=== PATIENT | female | born 1960 | race Caucasian/White ===

== ENCOUNTER → 2016-10-14 | Outpatient (CLI) | payer OTHER ==
[2016-10-14 09:07] LABS: BASO % 0.4 % (0.0-1.0); EOS # 0.2 K/mm3 (0.0-0.50); EOS % 2.5 % (0.0-3.0); LARGE UNSTAINED CELL # 0.1 K/mm3 (0.0-0.4); LARGE UNSTAINED CELL % 2.3 % (0.0-4.0); LYMPH # 1.9 K/mm3 (1.5-4.5); LYMPH % 30.8 % (24.0-44.0); MEAN CORPUSCULAR HEMOGLOBIN 29.5 pg (27.0-33.0); MEAN CORPUSCULAR HGB CONC 33.5 g/dl (32.0-36.5); MEAN CORPUSCULAR VOLUME 87.9 fl (80.0-96.0); MONO # 0.4 K/mm3 (0.0-0.8); NEUTROPHILS # 3.6 K/mm3 (1.8-7.7); PLATELET COUNT, AUTOMATED 242 k/mm3 (150-450); RED CELL DISTRIBUTION WIDTH 12.9 % (11.5-14.5); WHITE BLOOD COUNT 6.2 K/mm3 (4.0-10.0)
[2016-10-14 09:22] LABS: ALBUMIN 3.9 GM/DL (3.2-5.2); ALBUMIN/GLOBULIN RATIO 1.18 (1.00-1.93); ALKALINE PHOSPHATASE 49 U/L (45-117); ALT/SGPT 25 U/L (12-78); ANION GAP 4 MEQ/L (8-16); AST/SGOT 12 U/L (15-37); BILIRUBIN,TOTAL 0.4 MG/DL (0.2-1.0); BLOOD UREA NITROGEN 17 MG/DL (7-18); CALCIUM LEVEL 9.3 MG/DL (8.5-10.1); CARBON DIOXIDE LEVEL 32 MEQ/L (21-32); CHLORIDE LEVEL 103 MEQ/L (98-107); CHOLESTEROL LEVEL 179 MG/DL (<200); CREATININE FOR GFR 0.69 MG/DL (0.55-1.02); GLOMERULAR FILTRATION RATE > 60.0 (>51); GLUCOSE, FASTING 86 MG/DL (70-105); POTASSIUM SERUM 4.2 MEQ/L (3.5-5.1); SODIUM LEVEL 139 MEQ/L (136-145); TOTAL PROTEIN 7.2 GM/DL (6.4-8.2); TRIGLYCERIDES LEVEL 95 MG/DL (<150)
== END ==
LOC: M LAB 08:21
PROVIDERS: ATTEND Nurse Practitioner Family
DX: K21.9 Gastro-esophageal reflux disease without esophagitis (principal); Z13.220 Encounter for screening for lipoid disorders

== ENCOUNTER → 2016-10-21 | Outpatient (CLI) | payer OTHER ==
--- NOTE | 2016-10-22 08:14 | REPMRS ---
Patient History The patient states she had a clinical breast exam in June 2016.Family history of prostate cancer in father at age 55. Digital Mammo Screening Bilat: October 21, 2016 - Exam #: [id number] Bilateral CC and MLO view(s) were taken. Technologist: Kellen Lester, Technologist Prior study comparison: October 25, 2011, bilateral digital mammo screening bilat performed at [facility]. February 05, 2008, bilateral bilat screen digital mammo performed at [facility]. March 16, 2005, bilateral mammogram performed at [facility]. FINDINGS: The breast tissue is almost entirely fat. There has been no change in the appearance of the mammogram from the prior studies. There is no interval development of dominant mass, architectural distortion, or clustered microcalcification typical of malignancy. ASSESSMENT: BI-RADS/ACR category 1 mammogram. Negative. Recommendation Routine screening mammogram of both breasts in 1 year (for women over age 40). This mammogram was interpreted with the aid of an FDA-approved computer-aided dectection system. Electronically Signed By: Richie Lewis MD 10/22/16 0814
== END ==
LOC: M RAD 17:12
PROVIDERS: ATTEND Nurse Practitioner Family
DX: Z12.31 Encounter for screening mammogram for malignant neoplasm of breast (principal); E65 Localized adiposity

== ENCOUNTER → 2016-12-23 | Outpatient (CLI) | payer OTHER ==
--- NOTE | 2016-12-23 08:22 | REP ---
Clinical: Right upper quadrant abdominal pain. Technique: Trotter scale ultrasound using curved array transducer. Findings: The liver and pancreas are normal in contour, size, and echogenicity without focal hepatic or pancreatic lesions identified. The gallbladder is normal without gallstones, wall thickening or pericholecystic fluid. No biliary ductal dilatation is appreciated, and the common bile duct measures 3.8 mm diameter. The right kidney is normal in reniform shape without hydronephrosis and measures 10.7 x 6.1 x 4.5 cm. No ascites. Visualized portions of the abdominal aorta normal. Impression: Normal right upper quadrant and gallbladder abdominal ultrasound. Signed by Wilbur Calderon MD 12/23/2016 08:13 A
[2016-12-23 08:39] LABS: AMYLASE 38 U/L (25-115)
== END ==
LOC: M LAB 07:21
PROVIDERS: ATTEND Nurse Practitioner Family
DX: R10.11 Right upper quadrant pain (principal)

== ENCOUNTER → 2017-04-29 | Outpatient (CLI) | payer OTHER | LOC: M EKG 16:31 | DX: Z01.818 Encounter for other preprocedural examination (principal); K21.9 Gastro-esophageal reflux disease without esophagitis; M19.90 Unspecified osteoarthritis, unspecified site ==

== ENCOUNTER 2017-05-05 08:03 | Day surgery (SDC) | payer OTHER ==
[2017-05-05] MEDS: LR 1,000 ML IV (08:56)
[2017-05-05] MEDS ORDERED: ONDANSETRON 4MG/2ML VIAL (J2405) As Ordered (09:25)
[2017-05-05] MEDS ORDERED: METOCLOPRAMIDE INJ 10MG/2ML VIAL (J2765) As Ordered (09:25)
[2017-05-05] MEDS ORDERED: KETOROLAC 60 MG/2 ML VIAL (J1885) As Ordered (09:25)
[2017-05-05] MEDS ORDERED: PROPOFOL 200 MG/20 ML VIAL As Ordered (09:25)
[2017-05-05] MEDS ORDERED: LIDOCAINE 2% INJ 100 MG/5 ML SDV (FOR ANES.) As Ordered (09:25)
[2017-05-05] MEDS ORDERED: MIDAZOLAM INJ 2 MG/2 ML VIAL (J2250) As Ordered (09:26)
[2017-05-05] MEDS ORDERED: fentaNYL 100 MCG/2 ML INJECTION (J3010) As Ordered (09:26)
[2017-05-05] MEDS: VASOPRESSIN INJ 20 UNITS/ML VIAL As Ordered (10:33)
[2017-05-05] MEDS ORDERED: PERCOCET 5MG/325MG TAB As Ordered (11:59)
[2017-05-05] MEDS: PERCOCET 5MG/325MG TAB PO ×2 (12:03→12:50)
[2017-05-05] MEDS ORDERED: IBUPROFEN 600 MG TAB PO (12:15)
[2017-05-05] MEDS ORDERED: LR 1,000 ML IV ×2 (12:15)
[2017-05-05] MEDS ORDERED: ONDANSETRON 4MG/2ML VIAL (J2405) IV (12:15)
[2017-05-05] MEDS ORDERED: fentaNYL 100 MCG/2 ML INJECTION (J3010) IV (12:15)
[2017-05-05] MEDS: NORCO, ANEXSIA 5/325MG TABLET (HYDROcodone/ACETAMINOPHEN) PO (15:56)
== END 2017-05-05 16:20 | disposition home or self-care (01) ==
LOC: M SDC 08:03
DX: N39.3 Stress incontinence (female) (male) (principal); N36.41 Hypermobility of urethra; N81.6 Rectocele; N81.5 Vaginal enterocele; K21.9 Gastro-esophageal reflux disease without esophagitis; M12.9 Arthropathy, unspecified; G43.909 Migraine, unspecified, not intractable, without status migrainosus; Z79.899 Other long term (current) drug therapy; Z86.61 Personal history of infections of the central nervous system; Z78.0 Asymptomatic menopausal state; Z98.51 Tubal ligation status; Z86.59 Personal history of other mental and behavioral disorders
CPT/HCPCS: 57288

== ENCOUNTER → 2017-08-04 | Outpatient (CLI) | payer OTHER ==
[2017-08-04 16:55] LABS: ERYTHROCYTE SEDIMENTATION RATE 8 mm/hr (0-30)
[2017-08-04 17:26] LABS: ANION GAP 4 MEQ/L (8-16); BLOOD UREA NITROGEN 17 MG/DL (7-18); C REACTIVE PROTEIN QUANTITATIV < 0.30 MG/DL (0.00-0.30); CALCIUM LEVEL 9.4 MG/DL (8.5-10.1); CARBON DIOXIDE LEVEL 30 MEQ/L (21-32); CHLORIDE LEVEL 106 MEQ/L (98-107); CREATININE FOR GFR 0.72 MG/DL (0.55-1.30); GLOMERULAR FILTRATION RATE > 60.0 (>51); GLUCOSE, FASTING 88 MG/DL (70-100); POTASSIUM SERUM 4.6 MEQ/L (3.5-5.1); SODIUM LEVEL 140 MEQ/L (136-145)
== END ==
LOC: M WUC 11:23
DX: M19.071 Primary osteoarthritis, right ankle and foot (principal)
CPT/HCPCS: 80048

== ENCOUNTER → 2017-11-29 | Outpatient (CLI) | payer OTHER | LOC: M RAD 17:31 | DX: M25.571 Pain in right ankle and joints of right foot (principal); M54.5 Low back pain ==

== ENCOUNTER → 2018-01-16 | Outpatient (CLI) | payer OTHER | LOC: M RAD 08:23 | DX: J18.9 Pneumonia, unspecified organism (principal) | CPT/HCPCS: 71046 ==

== ENCOUNTER 2018-08-11 14:57 | Outpatient (RCR) | payer OTHER ==
[~2018-08-11 14:57] MED LIST: ACET500T15 PO; AMBI5TAB PO; IBUP1TAB7 PO; MULT1TAB10 PO; PRED5TA PO; PRIL20CA9 PO; acyclovir PO
== END 2018-08-15 ==
LOC: M OUTALCOH 14:57
PROVIDERS: ATTEND Psychiatry & Neurology Psychiatry
DX: Z03.89 Encounter for observation for other suspected diseases and conditions ruled out (principal)

== ENCOUNTER → 2018-08-14 | Outpatient (CLI) | payer OTHER ==
[2018-08-14 10:30] LABS: BASO % 0.5 % (0.0-1.0); EOS # 0.1 10^3/uL (0.0-0.50); HEMATOCRIT 40.5 % (36.0-47.0); HEMOGLOBIN 13.2 g/dl (12.0-15.5); LYMPH # 2.3 10^3/uL (1.5-4.5); LYMPH % 34.4 % (24.0-44.0); MEAN CORPUSCULAR HEMOGLOBIN 28.8 pg (27.0-33.0); MEAN CORPUSCULAR HGB CONC 32.6 g/dl (32.0-36.5); MEAN CORPUSCULAR VOLUME 88.2 fl (80.0-96.0); MONO # 0.6 10^3/uL (0.0-0.8); MONO % 8.4 % (0.0-5.0); NEUTROPHILS # 3.6 10^3/uL (1.8-7.7); NEUTROPHILS % 54.4 % (36.0-66.0); PLATELET COUNT, AUTOMATED 251 10^3/uL (150-450); RED BLOOD COUNT 4.59 10^6/uL (4.00-5.40); WHITE BLOOD COUNT 6.6 10^3/uL (4.0-10.0)
[2018-08-14 11:03] LABS: ALBUMIN 4.2 GM/DL (3.2-5.2); ALT/SGPT 29 U/L (12-78); BILIRUBIN,TOTAL 0.4 MG/DL (0.2-1.0); BLOOD UREA NITROGEN 15 MG/DL (7-18); CALCIUM LEVEL 9.3 MG/DL (8.5-10.1); CARBON DIOXIDE LEVEL 30 MEQ/L (21-32); CHLORIDE LEVEL 106 MEQ/L (98-107); CHOLESTEROL LEVEL 193 MG/DL (<200); CHOLESTEROL RISK RATIO 3.327 (<5); CREATININE FOR GFR 0.69 MG/DL (0.55-1.30); GLOMERULAR FILTRATION RATE > 60.0 (>51); GLUCOSE, FASTING 90 MG/DL (70-100); HDL CHOLESTEROL 58 MG/DL (>40); LDL CHOLESTEROL 120 MG/DL (<100); NON-HDL-C 135 MG/DL; POTASSIUM SERUM 4.6 MEQ/L (3.5-5.1); SODIUM LEVEL 140 MEQ/L (136-145); TOTAL PROTEIN 7.7 GM/DL (6.4-8.2); TRIGLYCERIDES LEVEL 76 MG/DL (<150)
--- NOTE | 2018-08-15 01:54 | REP ---
Clinical: Cervicalgia Technique: AP, lateral, bilateral oblique, flexion/extension, and open-mouth views of the cervical spine. Findings: Alignment and lordosis maintained. No acute fracture / compression injury or subluxation. Focal advanced degenerative disc osteophyte complex at C6-7 is appreciated along with a mild multilevel degenerative changes throughout the remainder of the cervical spine. Oblique views demonstrate patent neural foramen. Open mouth view demonstrates normal C1-C2 articulation and odontoid process. Impression: Focal degenerative change at C6-7 along with mild multilevel degenerative changes. Electronically Signed by Wilbur Calderon MD 08/15/2018 01:46 A
== END ==
LOC: M LAB 09:58
PROVIDERS: ATTEND Nurse Practitioner Family
DX: Z13.220 Encounter for screening for lipoid disorders (principal); K21.9 Gastro-esophageal reflux disease without esophagitis; M25.78 Osteophyte, vertebrae; M50.323 Other cervical disc degeneration at C6-C7 level

== ENCOUNTER → 2018-08-17 | Outpatient (CLI) | payer OTHER ==
--- NOTE | 2018-08-18 11:05 | REPMRS ---
Patient History The patient states she has not had a clinical breast exam in over a year. Family history of prostate cancer at age 55 in father. 3D TOMOSYNTHESIS WAS PERFORMED. Digital Mammo Screening Bilat: August 17, 2018 - Exam #: [id number] Bilateral CC and MLO view(s) were taken. Technologist: Kellen Lester, Technologist Prior study comparison: October 21, 2016, bilateral digital mammo screening bilat performed at [facility]. October 25, 2011, bilateral digital mammo screening bilat performed at [facility]. FINDINGS: There are scattered fibroglandular densities. There has been no change in the appearance of the mammogram from the prior studies. There is a mild amount of residual fibroglandular tissue which is fairly symmetric. There is no interval development of dominant mass, architectural distortion, or clustered microcalcification suggestive of malignancy. Assessment: BI-RADS/ACR category 1 mammogram. Negative Mammogram. Recommendation Routine screening mammogram in 1 year (for women over age 40). This mammogram was interpreted with the aid of an FDA-approved computer-aided dectection system. Electronically Signed By: Aram Trotter MD 08/18/18 [id number]
== END ==
LOC: EDSTATUS 17:00 → M RAD 17:01
PROVIDERS: ATTEND Nurse Practitioner Family
DX: Z12.31 Encounter for screening mammogram for malignant neoplasm of breast (principal)

== ENCOUNTER → 2018-09-05 | Outpatient (CLI) | payer OTHER ==
--- NOTE | 2018-09-05 17:55 | REP ---
MR LUMBAR SPINE WITHOUT CONTRAST: HISTORY: Back pain. COMPARISON: 11/08/2014. Decreased signal intensity on T2-weighted images is present in the L2-3 through L4-5 intervertebral discs. The discs are decreased in height. These findings are consistent with disc degeneration. There is no disc bulge or herniation at the L1-2 level. The L1 nerves exit the neural foramina without compression. A diffuse disc bulge is present at the L2-3 level. There is minimal compression of the thecal sac. There is hypertrophy of the ligamenta flava and posterior articulating facets. The L2 nerves exit the neural foramina without compression. A diffuse disc bulge is present at the L3-4 level. There is hypertrophy of the ligamenta flava and posterior articulating facets. These findings produce minimal central canal stenosis. The L3 nerves exit the neural foramina without compression. A diffuse disc bulge is present at the L4-5 level. There is hypertrophy of the ligamenta flava and posterior articulating facets. These findings produce moderate central canal stenosis. The L4 nerves exit the neural foramina without compression. A diffuse disc bulge is present at the L5-S1. There is minimal compression of the thecal sac. There is hypertrophy of the posterior articulating facets. The L5 nerves exit the neural foramina without compression. The conus medullaris is normal in appearance terminating at the level of the L1-2 intervertebral disc. A Tarlov cyst is present at the S2 level. Increased signal intensity on T2 weighted images is present in inferior endplate of the L4 vertebral body. This represents degenerative change. IMPRESSION: 1. Diffuse disc bulges at the L2-3 and L5-1 levels with minimal thecal sac compression. 2. Minimal central canal stenosis at the L3-4 level secondary to disc bulge, ligamentous, and facet hypertrophy. 3. Moderate central canal stenosis at the L4-5 level secondary to disc bulge, ligamentous and facet hypertrophy. Electronically Signed by Reuben Leigh MD 09/05/2018 05:59 P
== END ==
LOC: M RAD 14:02
PROVIDERS: ATTEND Nurse Practitioner Family
DX: M51.26 Other intervertebral disc displacement, lumbar region (principal); M51.27 Other intervertebral disc displacement, lumbosacral region; M48.07 Spinal stenosis, lumbosacral region

== ENCOUNTER → 2018-10-23 | Outpatient (CLI) | payer OTHER ==
--- NOTE | 2018-10-23 14:49 | REP ---
MRI CERVICAL SPINE WITHOUT CONTRAST: HISTORY: Neck pain. Comparison radiographs, August 14, 2018. TECHNIQUE: Sagittal and axial T1 and T2-weighted scans are acquired in the usual fashion with and without fat saturation. Sequences include spin echo, turbo spin-echo, and STIR imaging sequences. MRI FINDINGS: Cervical vertebral body heights are preserved. Alignment is normal. The cervical cord is normal in coarse, caliber, and signal intensity on T1- and T2-weighted scans. At C5-6, there is mild left-sided uncovertebral spurring. There is minimal bilateral uncovertebral spurring at C6-C7. No central canal stenosis or disc protrusion is seen at either of these levels. C7-T1 and more proximal cervical spine disc levels are unremarkable. There is mild osteoarthritic facet hypertrophy in the mid cervical spine bilaterally. IMPRESSION: Left-sided uncovertebral spurring at C5-6 producing mild neural foraminal narrowing. Minimal bilateral C6-7 uncovertebral spurring. Mild facet osteoarthritis. No cord compression seen. Electronically Signed by Marcelo Lewis MD 10/23/2018 05:16 P
== END ==
LOC: M RAD 08:43
PROVIDERS: ATTEND Nurse Practitioner Family
DX: M25.78 Osteophyte, vertebrae (principal)

== ENCOUNTER → 2019-09-04 | Outpatient (REF) | payer OTHER | LOC: M SFHCCLAY 15:23 | PROVIDERS: ATTEND Nurse Practitioner Family | DX: R76.8 Other specified abnormal immunological findings in serum (principal) ==

== ENCOUNTER → 2019-09-05 | Outpatient (REF) | payer OTHER ==
[2019-09-05 12:40] LABS: ALBUMIN 3.9 GM/DL (3.2-5.2); ALT/SGPT 27 U/L (12-78); BILIRUBIN,TOTAL 0.7 MG/DL (0.2-1.0); BLOOD UREA NITROGEN 15 MG/DL (7-18); CALCIUM LEVEL 9.2 MG/DL (8.5-10.1); CARBON DIOXIDE LEVEL 29 MEQ/L (21-32); CHLORIDE LEVEL 102 MEQ/L (98-107); GLOMERULAR FILTRATION RATE > 60.0 (>51); GLUCOSE, FASTING 77 MG/DL (70-100); POTASSIUM SERUM 4.9 MEQ/L (3.5-5.1); SODIUM LEVEL 138 MEQ/L (136-145); TOTAL PROTEIN 7.4 GM/DL (6.4-8.2)
[2019-09-05 12:59] LABS: HEPATITIS B SURFACE ANTIGEN NEGATIVE (NEGATIVE)
[2019-09-05 16:12] LABS: HEPATITIS A ANTIBODY IGM NEGATIVE (NEGATIVE); HEPATITIS B CORE ANTIBODY IGM NEGATIVE (NEGATIVE)
[2019-09-06 08:14] LABS: HEPATITIS C VIRUS ABY INDEX 0.8 INDEX (<0.8)
[2019-09-11 10:08] LABS: HEPATITIS C QUANTITATION HCV Not Detected IU/mL (.)
== END ==
LOC: M SFHCCLAY 09:14
PROVIDERS: ATTEND Nurse Practitioner Family
DX: R76.8 Other specified abnormal immunological findings in serum (principal)

== ENCOUNTER → 2020-03-18 | Outpatient (CLI) | payer SELFPAY | LOC: M LABSMTC 09:33 | PROVIDERS: ATTEND Pediatrics | DX: Z20.828 Contact with and (suspected) exposure to other viral communicable diseases (principal) ==

== ENCOUNTER → 2020-03-21 | Outpatient (CLI) | payer SELFPAY | LOC: M LABSMTC 10:27 | PROVIDERS: ATTEND Pediatrics | DX: Z20.828 Contact with and (suspected) exposure to other viral communicable diseases (principal) ==

== ENCOUNTER → 2020-06-22 | Outpatient (REF) | LOC: M LABSMTC 09:58 | PROVIDERS: ATTEND Pediatrics | DX: Z11.52 Encounter for screening for COVID-19 (principal) ==

== ENCOUNTER → 2020-06-25 | Outpatient (REF) | LOC: M LABSMTC 13:23 | PROVIDERS: ATTEND Pediatrics | DX: Z20.822 Contact with and (suspected) exposure to COVID-19 (principal) ==

== ENCOUNTER → 2021-03-30 | Outpatient (REF) ==
[2021-03-30 13:23] LABS: RSV AMPLIFICATION NEGATIVE (NEGATIVE)
== END ==
LOC: M LABSMTC 10:24
PROVIDERS: ATTEND Family Medicine
DX: Z11.52 Encounter for screening for COVID-19 (principal); Z20.822 Contact with and (suspected) exposure to COVID-19

== ENCOUNTER → 2021-04-15 | Outpatient (REF) | LOC: M EMP 08:14 | PROVIDERS: ATTEND Family Medicine | DX: Z11.52 Encounter for screening for COVID-19 (principal); Z20.822 Contact with and (suspected) exposure to COVID-19 ==

== ENCOUNTER → 2021-04-20 | Outpatient (REF) ==
[2021-04-20 15:07] LABS: RSV AMPLIFICATION NEGATIVE (NEGATIVE)
== END ==
LOC: M EMP 14:03
PROVIDERS: ATTEND Family Medicine
DX: Z11.52 Encounter for screening for COVID-19 (principal); Z20.822 Contact with and (suspected) exposure to COVID-19

== ENCOUNTER 2024-05-29 08:00 | Day surgery (SDC) | payer MEDICAID ==
[~2024-05-29] VITALS: Ht 170.2 cm; Wt 84.8 kg
[~2024-05-29 08:00] MED LIST changes: +AMPH1CAP16 PO; +DEXTROAMP-AMPHETAMIN PO; +IMIT50TA PO; +MULTTAB61 PO; +OMEP40CA5 PO; +ZOLP10TA2 PO
[2024-05-29] MEDS ORDERED: propofoL 200 MG/20 ML VIAL As Ordered ONE (08:22)
[2024-05-29] MEDS ORDERED: GLYCOPYRROLATE INJ 0.2 MG/ML 2 ML VIAL As Ordered ONE (08:23)
[2024-05-29] MEDS ORDERED: KETOROLAC 60MG 2ML VIAL As Ordered ONE (08:23)
[2024-05-29] MEDS ORDERED: SUGAMMADEX SODIUM 500 MG/5 ML VIAL (BRIDION) As Ordered ONE (08:23)
[2024-05-29] MEDS ORDERED: METOCLOPRAMIDE INJ 10MG/2ML VIAL As Ordered ONE (08:23)
[2024-05-29] MEDS ORDERED: LIDOCAINE 2% 100MG/5ML SDV (FOR ANES.) As Ordered ONE (08:23)
[2024-05-29] MEDS ORDERED: ROCURONIUM BROMIDE 50MG/5ML VIAL As Ordered ONE (08:23)
[2024-05-29] MEDS ORDERED: ONDANSETRON 4MG 2ML VIAL As Ordered ONE (08:23)
[2024-05-29] MEDS ORDERED: fentaNYL 100 MCG/2 ML INJECTION As Ordered ONE (08:27)
[2024-05-29] MEDS ORDERED: MIDAZOLAM INJ 2MG/2ML VIAL As Ordered ONE (08:27)
[2024-05-29 08:30] LABS: HEMATOCRIT 42.9 % (36.0-47.0); HEMOGLOBIN 13.4 g/dl (12.0-15.5); MEAN CORPUSCULAR HEMOGLOBIN 27.6 pg (27.0-33.0); MEAN CORPUSCULAR HGB CONC 31.2 g/dl (32.0-36.5); MEAN CORPUSCULAR VOLUME 88.3 fl (80.0-96.0); PLATELET COUNT, AUTOMATED 282 10^3/uL (150-450); RED BLOOD COUNT 4.86 10^6/uL (4.00-5.40); WHITE BLOOD COUNT 7.7 10^3/uL (4.0-10.0)
[2024-05-29] MEDS: LR 1,000 ML IV SCH (08:57)
[2024-05-29] MEDS: SILVER NITRATE APPLICATOR (1 = QTY 10) As Ordered ONE (10:28)
[2024-05-29] MEDS ORDERED: ePHEDrine SULFATE 25 MG/5 ML(5MG/ML) SYRINGE As Ordered ONE (11:51)
[2024-05-29] MEDS ORDERED: PHENYLephrine 500MCG 5ML (100MCG/ML) SYRINGE As Ordered ONE (11:53)
[2024-05-29] MEDS: LIDOCAINE W/EPINEPHRINE 1% 20ML VIAL As Ordered ONE (12:00)
[2024-05-29] MEDS: IODINE STRONG SOLN 15ML BTL As Ordered ONE (12:11)
[2024-05-29] MEDS ORDERED: NS (Normal Saline) 0.9% 1,000 ML IV SCH (12:25)
[2024-05-29] MEDS ORDERED: oxyCODONE 5MG TAB PO PRN (12:25)
[2024-05-29] MEDS ORDERED: HYDROMORPHONE HCL 0.5 MG/ 0.5 ML SYRINGE IV PRN (12:25)
[2024-05-29] MEDS ORDERED: fentaNYL 100 MCG/2 ML INJECTION IV PRN (12:25)
[2024-05-29] MEDS ORDERED: ONDANSETRON 4MG 2ML VIAL IV PRN (12:25)
[2024-05-29 13:15] VITALS: BP 138/68; TEMP 97.6; O2SAT 99
[2024-05-29] MEDS: ACETAMINOPHEN 500 MG TAB PO ONE (13:15)
== END 2024-05-29 13:30 | disposition home or self-care (01) ==
LOC: M SDC 08:00
PROVIDERS: ATTEND Obstetrics & Gynecology
DX: N87.1 Moderate cervical dysplasia (principal); K21.9 Gastro-esophageal reflux disease without esophagitis; Z79.899 Other long term (current) drug therapy; Z90.49 Acquired absence of other specified parts of digestive tract
CPT/HCPCS: 36415; 57522; 85027; 86850; 86900; 86901; 88305; 88307; J1100; J1596; J1885; J2250; J2371; J2405; J2765; J3010